=== PATIENT | male | born 1980 | race Hispanic/Latino ===

== ENCOUNTER 2016-06-18 19:36 | Observation (INO) | payer OTHER ==
[~2016-06-18] VITALS: Ht 167.6 cm; Wt 93.9 kg
[2016-06-18 19:41] VITALS: BP 171/106; PULSE 85; RESP 20; O2SAT 98
[2016-06-18 20:08] LABS: BASOPHILS % (AUTO) 0.3 % (0-3); EOSINOPHILS % (AUTO) 1.9 % (0-5); MONOCYTES % (AUTO) 6.5 % (4-12); Mean Corpuscular Hemoglobin 30.4 pg (27.0-35.0); Mean Corpuscular Volume 88.1 fL (81-100); NEUTROPHILS % (AUTO) 69.6 % (40-74); Platelet Count 355 bil/L (150-400)
[2016-06-18 20:29] LABS: Magnesium 2.4 mg/dL (1.6-2.6)
--- NOTE | 2016-06-18 21:25 | ED.REPORT ---
HPI-Abd Pain M Under 40 Date of Service Jun 18, 2016 ED Provider: Giancarlo Case DO Patient is a 36 year old male who presents to the ED complaining of abdominal pain onset this afternoon. His pain started as sharp epigastric pain and the effort to swallow caused him pain. Over time his pain has moved to his RLQ. Associated symptoms include chills, diaphoresis, and nausea. He denies vomiting , dysuria, or any other symptoms. Nursing Notes Stated Complaint: STOMACH PAIN Chief Complaint: Male Abdominal Pain Nursing Notes Reviewed: Yes Allergies: Coded Allergies: No Known Allergies (Verified , 02/13/04) Uncoded Allergies: No Known Allergies (Allergy, Severe, 02/13/04) General Time Seen by MD: 21:21 Chief Complaint Abdominal pain Hx Obtained From: Patient, Spouse Sudden in Onset?: Yes Similar Sx Previous: No Past Medical History Past Medical History Endocarditis Reports: Hypertension Past Surgical History Denies Smoking History Former Smoker Social History Other Social History: Good social support, Ambulatory Status Independent Review of Systems Constitutional: Reports: Chills GI: Reports: Abdominal pain, Nausea, Denies: Vomiting Male: Denies Dysuria Complete sys rev & neg: except as marked. Skin: Reports Diaphoresis Physical Exam Initial Vital Signs Vital Signs (First) Date Time Temp Pulse Resp B/P Pulse Ox O2 Delivery O2 Flow Rate FiO2 06/18/16 19:41 36.5 85 20 171/106 98 Initial VS: Reviewed Head / Eyes: Atraumatic, Normocephalic Skin: Warm, Dry Neurologic: Alert, Oriented, Nonfocal Psychiatric: Mood/affect normal, Behavior normal, Normal thought content General/Constitutional: Awake, Alert, Well developed Hypertensive Respiratory / Chest: No respiratory distress Cardiovascular: Heart rate NL, Regular rhythm Abdomen: Soft Tenderness/Guarding/Rebound: Positive: Tender RLQ... Back: Inspection NL Interpretation & Diagnostics Lab Results Interpretation Result Diagram: 06/18/16199906/18/161999 Test 06/18/16 20:00 06/18/16 21:20 White Blood Count 11.3th/mm3 (3.8-10.1) Red Blood Count 5.23mil/mm3 (4.40-5.80) Hemoglobin 15.9g/dL (13.8-17.2) Hematocrit 46.1% (41.0-50.0) Mean Corpuscular Volume 88.1fL (81-100) Mean Corpuscular Hemoglobin 30.4pg (27.0-35.0) Mean Corpuscular Hemoglobin Concent 34.5% (32.0-37.0) Red Cell Distribution Width 12.7% (12.3-15.4) Platelet Count 355bil/L (150-400) Neutrophils (%) (Auto) 69.6% (40-74) Lymphocytes (%) (Auto) 21.4% (14-46) Monocytes (%) (Auto) 6.5% (4-12) Eosinophils (%) (Auto) 1.9% (0-5) Basophils (%) (Auto) 0.3% (0-3) Sodium Level 136mEq/L (134-144) Potassium Level 3.8mEq/L (3.5-5.2) Chloride Level 96mEq/L (97-108) Carbon Dioxide Level 28mmol/L (18-29) Blood Urea Nitrogen 18mg/dL (6-20) Creatinine 0.96mg/dL (0.76-1.27) Estimat Glomerular Filtration Rate 94mL/min (>59) Glucose Level 106mg/dL (60-99) Calcium Level 9.4mg/dL (8.5-10.1) Magnesium Level 2.4mg/dL (1.6-2.6) Total Bilirubin 0.7mg/dL (0.0-1.2) Aspartate Amino Transf (AST/SGOT) 39U/L (0-50) Alanine Aminotransferase (ALT/SGPT) 66U/L (0-44) Alkaline Phosphatase 69U/L (25-150) Total Protein 7.8g/dL (6.4-8.4) Albumin 4.6g/dL (3.4-5.0) Lipase 20U/L (13-60) Hold Fernandes Top Tube Received (Received) Hold Urine Received (Received) CT Abd / Pelvis Interpretation Acute appendicitis, some area of diverticulosis and fatty liver. Study type: Abdominal CT IV contrast Interpretation / Wet Read by: Discussed w radiologist Re-Eval/Medical Decision Med Decision/Clinical Course Appendicitis will admit Re-Evaluation/Progress : Time of Eval: 22:09 )( Re-Eval Abdomen: Soft Re-Evaluation/Progress Note: Discussed imaging results and plan fro admission. Patient understands and agrees with plan. All questions addressed at this time. Consultation : Referral / Consult Name: Anisha Campa MD Consulted With: Surgeon Call Returned at: 22:11 Risk Control Officer: Will see patient, Agrees with eval, Agrees with plan, Accepts admit Note: Discussed patient's case. Accepts admit. Surgery in the morning Counseled Regarding: Diagnosis, Lab results, Need for admission Patient Discharge & Departure Primary Impression: Acute appendicitis Disposition: ADMITTED TO HOSPITAL Referrals: Popeye Ramos MD (PCP) Scribe Attestation Portions of this note were transcribed by Yunior Martin. I, Dr. Case personally performed the history, physical exam and medical decision-making; I reviewed and confirmed the accuracy of the information in the transcribed note. Signed by: Yunior Martin 06/18/2016, [id number] copies to: Popeye Ramos MD, Timothy S DO Jun 18, 2016 21:25 YUNIOR MARTIN Jun 18, 2016 21:44
[2016-06-18] MEDS ORDERED: Ondansetron 2 mg/mL 2 mL Inj IVPUSH PRN ×2 (21:40→22:15)
[2016-06-18] MEDS ORDERED: 0.9% Sodium Chloride 1,000 ML IV ONE ×2 (21:40→22:10)
[2016-06-18] MEDS ORDERED: Piperacillin-Tazo 3.375 Gm Inj 3.375 GM in Dextrose 5% Minibag Plus 50 ML IV ONE (22:10)
[2016-06-18] MEDS ORDERED: 0.9% Sodium Chloride 1,000 ML IV SCH (22:13)
[2016-06-18] MEDS ORDERED: Alum-Mag Hydrox-Simeth 30 mL Suspension PO PRN (22:15)
[2016-06-18] MEDS: Piperacillin-Tazo 3.375 Gm Inj 3.375 GM in Dextrose 5% Minibag Plus 50 ML IV SCH (23:48)
[2016-06-19] VITALS (15 sets, daily range): BP systolic 116–157; BP diastolic 67–96; PULSE 65–100; RESP 15–20; O2SAT 94–100
[2016-06-19] MEDS: 0.9% Sodium Chloride 1,000 ML IV SCH ×3 (00:41→06:10)
--- NOTE | 2016-06-19 01:17 | NUR ---
Admit To floor from ED at 0010 accompanied by . 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 States pain level is "0" at rest/ "6" with movement and pressure. Denies nausea. Received 1st dose of Zosyn in ED. Afebrile. Declines flu vaccine. Plan of care explained and no questions at this time. Awaiting surgery in AM.
--- NOTE | 2016-06-19 06:14 | NUR ---
Pain States right abdominal pain is minimal for now and declining further pain medications. Afebrile and has been sleeping. NPO awaiting surgery this AM.
[2016-06-19] MEDS: Piperacillin-Tazo 3.375 Gm Inj 3.375 GM in Dextrose 5% Minibag Plus 50 ML IV SCH (08:26)
--- NOTE | 2016-06-19 08:43 | HP ---
[address] [address] HISTORY AND PHYSICAL PATIENT: MARIELA VALLEJO : 1980 MR#: [id number] ADMIT: 06/18/2016 JOB ID: [id number] CHIEF COMPLAINT: Appendicitis. HISTORY OF PRESENT ILLNESS: The patient is a 36-year-old male who presented to the emergency department yesterday due to abdominal pain. The patient states that the pain started yesterday afternoon. It started at the epigastric location and subsequently the pain moved over to the right lower quadrant. He denies any nausea, vomiting. There were no chills. The patient is mostly Ghanaian speaking. Workup in the emergency department yesterday included a CT scan that shows acute appendicitis. The patient has been started on IV antibiotics. PAST MEDICAL HISTORY: Hypertension. MEDICATIONS: None. ALLERGIES: None. SOCIAL HISTORY: The patient is with a daughter. He lives in [place]. 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 REVIEW OF SYSTEMS: Positive for the abdominal pain. All other systems reviewed were negative. PHYSICAL EXAMINATION: The patient is currently in the hospital bed in no acute distress. His BMI is 33.4, temperature 36.8, blood pressure 126/81, pulse is 85. Head is normocephalic, atraumatic. There is no scleral icterus. Neck is supple. Heart is regular rhythm and rate. Lungs are clear. Abdomen is slightly obese but it is soft everywhere else except for mild tenderness in the right lower quadrant. There is no rebound. There are no peritoneal signs. Extremities shows no clubbing and no cyanosis. Neurologically, the patient is awake and alert. He is mostly Ghanaian speaking but speaks a few words of Puerto Rican. LABORATORY EXAMINATION: Last night showed a white blood count of 11.3, hematocrit 46.1, platelet count is 355. Sodium is 136, potassium 3.8, total bilirubin 0.7, lipase of 20. The CT scan report per the ED physician's note shows acute appendicitis. ASSESSMENT: This is a 36-year-old male with acute appendicitis. He has been started on IV antibiotics and we will take the patient to the operating room today for laparoscopic appendectomy, possible open. The risks of the operation were explained to the patient. The patient understands and wishes to proceed.
[2016-06-19] MEDS ORDERED: Lactated Ringer's 1,000 ML IV SCH (09:49)
[2016-06-19] MEDS ORDERED: Lactated Ringer's 500 ML IV PRN (09:49)
[2016-06-19] MEDS ORDERED: Labetalol 5 mg/mL 4 mL Inj IV PRN (09:50)
[2016-06-19] MEDS ORDERED: Ondansetron 2 mg/mL 2 mL Inj IVPUSH PRN ×2 (09:50→11:25)
[2016-06-19] MEDS ORDERED: EPHEDrine Sulfate 50 mg/mL Inj IVPUSH PRN (09:50)
[2016-06-19] MEDS ORDERED: Atropine 0.4 mg/mL Inj IVPUSH PRN (09:50)
[2016-06-19] MEDS ORDERED: HYDROmorphone 1 mg/mL Inj IVPUSH PRN ×2 (09:50→11:30)
[2016-06-19] MEDS ORDERED: MetoCLOpramide 5 mg/mL 2 mL Inj IVPUSH PRN (09:50)
[2016-06-19] MEDS ORDERED: Phenylephrine 10,000 mCg/mL Inj IVPUSH PRN (09:50)
[2016-06-19] MEDS ORDERED: fentaNYL-PF 50 mCg/mL 2 mL Inj IVPUSH PRN (09:50)
--- NOTE | 2016-06-19 10:00 | DRSVH ---
PROCEDURE: CT ABDOMEN AND PELVIS WITH CONTRAST ([id number]) INDICATIONS: rlq pain, chills TECHNIQUE: After the administration of intravenous contrast, 5 mm thick sections acquired from the diaphragm to the symphysis. 5 mm coronal and sagittal reformats were acquired. For radiation dose reduction, the following was used: automated exposure control, adjustment of mA and/or kV according to patient siz e. COMPARISON: None. FINDINGS: Image quality: Excellent. ABDOMEN: Lung bases: Lung bases are clear. Heart size is normal. Solid organs: Liver and spleen are normal in size and enhancement. Hepatic steatosis is present. Ga llbladder is unremarkable. Biliary system is non dilated. Pancreas enhances normally. No adrenal n odules. Kidneys demonstrate normal size and enhancement, without hydronephrosis. Peritoneum and bowel: Bowel loops demonstrate normal wall thickness and caliber. Scattered diverticu la without inflammatory change. The appendix is enlarged measuring 11 mm. There is surrounding infla mmatory change as well as presence of appendicoliths. No visualized perforation. No free fluid. Nodes and vessels: No retroperitoneal or mesenteric adenopathy by size criteria. Aorta and inferior vena cava are normal in size. Miscellaneous: No ventral hernias. PELVIS: Genitourinary: Bladder wall thickness is normal. Miscellaneous: No inguinal hernias or adenopathy. Bones: No suspicious bony lesions. No vertebral body compression fractures. IMPRESSION: 1. Enlarged, inflamed appendix with appendicoliths, most consistent with acute appendicitis. No visua lized perforation. 2. Diverticulosis. Dictated by: Christal Box M.D. on 06/19/2016 at 8:34 Approved by: Christal Box M.D. on 06/19/2016 at 9:59
--- NOTE | 2016-06-19 10:03 | PCM.HPANE ---
Patient Data Surgeon Admitting Provider:Anisha Campa MD Attending Provider:Anisha Campa MD Primary Care Physician:Popeye Ramos MD Other Provider: Reason for Visit Acute Appendicitis Ht/WT & BMI Height (Feet): 5 Height (Inches): 6.00 Weight (Kilograms): 93.900 Body Mass Index 33.27 Allergies Coded Allergies: No Known Allergies (Verified , 02/13/04) Uncoded Allergies: No Known Allergies (Allergy, Severe, 02/13/04) Diabetes History Hx Diabetes?: No MRSA MRSA: No History History of ENT Problems?: No Hx of Heart Problems?: No Cardiovascular History: Positive for:: Hypertension Denies:: Cardiac Surgery Chest Pain Congestive Heart Failure Irregular Heartbeat Pacemaker Thrombophlebitis Hx of Respiratory Problem?: No Respiratory History: Denies:: Asthma COPD Chest Surgery Dyspnea Emphysema Hemoptysis Pneumonia Tuberculosis Hx Neurologic Problems?: No Neurological History: Denies:: Alzheimer's Disease CVA Dementia Dizziness Headaches Parkinson's Disease Seizures Hx of GI Problems?: Yes (acute appendicitis) Gastrointestinal History: Denies:: Diverticulitis Gastroesphageal Reflux Gastrointestinal Bleeding Heartburn Hepatitis Hiatal Hernia Rectal Bleeding Other History/Comment Patient with 24 hours abdominal pain; no n/v. Pt is hungry right now Hx of Problems?: No Hx Musculoskeletal Problems?: Yes Musculoskeletal History: Positive for:: Back Injury Denies:: Joint Replacement Musculoskeletal Trauma Hx of Psycho/Social Problems?: No Hx Surgeries?: No Hx Any Other Health Problems?: No Other History: Positive for:: Hospitalization Denies:: Cancer Thyroid Disease History Blood Transfusions: Denies:: Accept Blood Products? Blood Transfuse Reaction Blood Transfusions Hx Diabetes: No Hx Alcohol Use: NoHx Substance Use: No Smoking Status: Former Smoker Have You Smoked inLast 12 mo: No Stop/Bang Treated for Sleep Apnea?: No Do You Have a CPAP Machine?: No S-Snoring: Do You Snore Loudly: Yes T-Tired: feel tired, fatigued: No O-Obsered: Observed not breath: No P-Blood Pressure: treated: Yes B- Body Mass Index > 35 kg/m2: No A- Age over 50: No N- Neck Large Circumference: No G- Gender Male: Yes LOUISE Total Score: 3 Risk Assessment Category Category 1A: Patient has history of documented sleep apnea, and HAS NOT received any narcotic, sedative or anesthesia administration during this stay. Category 1B: Patient has history of documented sleep apnea, and HAS received any narcotic , sedative or anesthesia administration during this stay Category 2: Patient has SUSPECTED Obstructive Sleep Apnea, and HAS received any narcotic , sedative or anesthesia administration during this stay. Category 3: Patient has SUSPECTED Obstructive Sleep Apnea and HAS NOT received narcotic, sedative or anesthesia administration during this stay. Category 4: Outpatient in Procedural Areas with known sleep apnea or who screen positive for High Risk via the STOP/BANG questionnaire. Exam Exam Vital Signs Vital Signs Date Time Temp Pulse Resp B/P Pulse Ox O2 Delivery O2 Flow Rate FiO2 06/19/16 07:14 36.8 85 126/81 96 Room Air 06/19/16 05:31 36.8 74 18 146/74 97 Room Air 06/19/16 03:03 36.9 84 18 121/73 97 Room Air General Appearance: Alert, Oriented X3 HEENT/AIRWAY: MP 2, Neck Movement (FROM) Lungs: Clear to Auscultation, Clear to Percussion Heart: Exam Unremarkable, Regular Rate/Rhythm Meds/Labs/Diagnostics Admission Meds Current Medications Sodium Chloride 1,000 ml @ 0 mls/hr Q0M ONCE IV Last administered on 21:40; Start 06/18/16 at 21:40; Stop 06/18/16 at 21:41; Status DC Piperacillin Sod/ Tazobactam Sod 3.375 gm/Dextrose/ Water 50 ml @ 100 mls/hr ONCE ONCE IV Last administered on 06/18/16 23:30; Start 06/18/16 at 22:10; Stop 06/18/16 at 22:39; Status DC Sodium Chloride 1,000 ml @ 0 mls/hr Q0M ONCE IV Last administered on 22:10; Start 06/18/16 at 22:10; Stop 06/18/16 at 22:11; Status DC Piperacillin Sod/ Tazobactam Sod 3.375 gm/Dextrose/ Water 50 ml @ 12.5 mls/hr Q8 IV Last administered on 06/19/16 08:26; Start 06/19/16 at 00:30 Sodium Chloride (Normal Saline) 1,000 ml @ 100 mls/hr Q10H IV Last administered on 2/23/17at 00:33; Start 06/18/16 at 22:13 Labs Test 06/18/16 20:00 06/18/16 21:20 White Blood Count 11.3th/mm3 (3.8-10.1) Red Blood Count 5.23mil/mm3 (4.40-5.80) Hemoglobin 15.9g/dL (13.8-17.2) Hematocrit 46.1% (41.0-50.0) Mean Corpuscular Volume 88.1fL (81-100) Mean Corpuscular Hemoglobin 30.4pg (27.0-35.0) Mean Corpuscular Hemoglobin Concent 34.5% (32.0-37.0) Red Cell Distribution Width 12.7% (12.3-15.4) Platelet Count 355bil/L (150-400) Neutrophils (%) (Auto) 69.6% (40-74) Lymphocytes (%) (Auto) 21.4% (14-46) Monocytes (%) (Auto) 6.5% (4-12) Eosinophils (%) (Auto) 1.9% (0-5) Basophils (%) (Auto) 0.3% (0-3) Sodium Level 136mEq/L (134-144) Potassium Level 3.8mEq/L (3.5-5.2) Chloride Level 96mEq/L (97-108) Carbon Dioxide Level 28mmol/L (18-29) Blood Urea Nitrogen 18mg/dL (6-20) Creatinine 0.96mg/dL (0.76-1.27) Estimat Glomerular Filtration Rate 94mL/min (>59) Glucose Level 106mg/dL (60-99) Calcium Level 9.4mg/dL (8.5-10.1) Magnesium Level 2.4mg/dL (1.6-2.6) Total Bilirubin 0.7mg/dL (0.0-1.2) Aspartate Amino Transf (AST/SGOT) 39U/L (0-50) Alanine Aminotransferase (ALT/SGPT) 66U/L (0-44) Alkaline Phosphatase 69U/L (25-150) Total Protein 7.8g/dL (6.4-8.4) Albumin 4.6g/dL (3.4-5.0) Lipase 20U/L (13-60) Hold Fernandes Top Tube Received (Received) Hold Urine Received (Received) Plan Impression Patient chart reviewed, patient interviewed and anesthestic plan with risks, benefits, and alternatives discussed, and informed consent obtained. ASA Physical Status: ASA2 Mod Systemic Disease Anesthetic Plan: GA Bene/Risks/Altern/Consents: Yes HP Complete Prior to Induction: Yes Tylor Magaña MD Jun 19, 2016 09:47
[2016-06-19] MEDS ORDERED: Lactated Ringer's 1,000 ML IV ONE (10:14)
--- NOTE | 2016-06-19 10:15 | NUR ---
To OR Report given to OR nurse. stable vital signs. Afebrile. NPO after midnight. family at bed side. stable mood. Denies pain or discomfort to right abdomen when patient not moving. independent with mobility. SBA, room air. verbalize the use of call light. call light with in reach for safety.
[2016-06-19] MEDS ORDERED: Bupivacaine-MPF 0.5% W/EPI 30 mL Inj INJ ONE (10:42)
[2016-06-19] MEDS ORDERED: HYDROcodone-APAP 5-325 mg Tablet PO PRN (11:25)
[2016-06-19] MEDS ORDERED: Sodium Chloride LOK Flush 10 mL Syringe IVFLUSH PRN (11:25)
--- NOTE | 2016-06-19 11:52 | NUR ---
Report from OR Report received from OR nurse. Stable vital signs and denies pain or discomfort to 3 dressing sites to left abdomen and right abdomen. patient still slightly drowsy and will be back to floor once stable.
--- NOTE | 2016-06-19 12:24 | PCM.ANEP1 ---
Post Anesthesia Phase 1 PACU Phase 1 Assessment Vital Signs Vital Signs Date Time Temp Pulse Resp B/P Pulse Ox O2 Delivery O2 Flow Rate FiO2 06/19/16 12:05 69 19 141/80 94 Nasal Cannula 2 06/19/16 11:50 66 17 140/67 100 Simple Mask 10 06/19/16 11:45 75 15 129/70 100 Simple Mask 10 06/19/16 11:40 65 15 129/79 100 Simple Mask 10 06/19/16 11:35 36.5 71 17 116/80 100 Simple Mask 10 06/19/16 07:14 36.8 85 126/81 96 Room Air 06/19/16 05:31 36.8 74 18 146/74 97 Room Air Anesthetic Administered: GA Level of Alertness: Awake, talking MANCINI's with Equal Strength: Yes Pain: Yes Pain Scale Score: 9 Oxygen Delivery: Simple Mask Lungs: Clear to Auscultation, Clear to Percussion Tylor Magaña MD Jun 19, 2016 12:24
--- NOTE | 2016-06-19 12:25 | PCM.ANEP2 ---
Post Anesthesia Evaluation ASA/CMS Post Anesthesia VS in Patient's Normal Range?: Yes Resp Stable; Airway Patent?: Yes CV Function & Hydration Stable: Yes Mental Status Recovered?: Yes Pain control Satisfactory?: Yes N/V Control Satisfactory?: Yes Tylor Magaña MD Jun 19, 2016 12:24
--- NOTE | 2016-06-19 12:56 | NUR ---
Back from PACU patient still slightly drowsy but awakens to voice. family at bed side. Offered clear fluids and tolerating well with out swallowing difficulty. stable vital signs. Oxygen at 2L stable oxygenation. bandages to left abdomen clean dry and intact. will continue to monitor dressing sites, pain, and vital signs. denies pain or discomfort at this time.
--- NOTE | 2016-06-19 13:43 | OP ---
[address] [address] OPERATIVE REPORT PATIENT: MARIELA VALLEJO : 1980 MR#: [id number] ADMIT: 06/18/2016 JOB ID: [id number] DATE OF SURGERY: 06/19/2016 SURGEON: Umer Redmond MD. 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 PREOPERATIVE DIAGNOSIS(ES): Acute appendicitis. POSTOPERATIVE DIAGNOSIS(ES): Acute appendicitis. PRINCIPAL PROCEDURE: Laparoscopic appendectomy. INDICATION FOR PROCEDURE: The patient is a 36-year-old male with acute appendicitis with a positive CAT scan. PRINCIPAL FINDING: Successful laparoscopic appendectomy. Nonruptured. PROCEDURAL COURSE: The patient was brought to the operating table and was provided with general anesthesia. The patient was given IV antibiotics and SCDs. A time-out was performed. The patient's abdomen was then prepped and draped in the usual sterile fashion. Next, local anesthetic was injected into the left upper quadrant location and a 5 mm stab incision was made. A Veress needle was used to establish pneumoperitoneum. Next, a 5 mm trocar was then placed and the laparoscope was introduced. A second 5 mm trocar was then placed in the left lateral abdomen and a 12 mm trocar was then placed in the left lower quadrant. The appendix was quickly identified in the right lower quadrant attached to the cecum. The mesoappendix was then first taken using electrocautery until we freed up all the way to the base of the appendix. Using an endoscopic stapler the base of the appendix was then transected. The specimen was then placed into the EndoCatch bag and removed from the patient. Irrigation of the pelvis and of the right lower quadrant was carried out. Inspection of the staple line shows that it was intact. There were no signs of arterial bleeding or leakage. Next, we turned our attention to the left lower quadrant trocar site. The fascial defect there was then reapproximated using 0 Vicryl suture using the EndoClose device. Next, CO2 was allowed to escape and all the trocars were then removed from the patient. Skin edges were then reapproximated using absorbable sutures. Steri-Strips and sterile dressing were then placed over each wound. By the end of procedure, needle counts and sponge counts were correct. The patient was then extubated and taken to the recovery room in stable satisfactory condition.
[2016-06-19] MEDS ORDERED: Piperacillin-Tazo 3.375 Gm Inj 3.375 GM in Dextrose 5% Minibag Plus 50 ML IV SCH (16:30)
[2016-06-19] MEDS ORDERED: 0.9% Sodium Chloride 250 ML ONE (17:20)
--- NOTE | 2016-06-19 19:24 | NUR ---
Discharge Family awaiting discharge to go home. paged Dr Redmond r/t finalized discharge. awaiting call back. Report given to oncoming night nurse.
--- NOTE | 2016-06-19 19:44 | PCM.DISURG ---
Surgical Discharge Instruction Date of Service Jun 19, 2016 Dates of Hospitalization Date of Hospital Admission Jun 18, 2016 at 22:29 Providers Admitting Physician: Anisha Campa MD Primary Care Physician: Popeye Ramos MD Attending Physician: Anisha Campa MD Discharge Diagnosis Discharge Diagnosis Appendicitis s/p lap appendectomy Diet Discharge Diet: No restrictions Activity Discharge Activity-General: Activity as pain allows, No lifting >15 pounds for 2 weeks, No driving while taking narcotic Dressing and Incisional Care Dressing Care: Keep dressing clean, dry & intact, Allow Steri Stripes to fall off Hygiene: May shower Additional Instructions Discharge Instructions Rx: Alexander (#25), colace OK to take home meds Follow Up Plan Follow-up Provider (F9): Israel Shre PA-C Follow-up appointment: Weeks (1-2) Umer Redmond MD Jun 19, 2016 19:44
--- NOTE | 2016-06-19 19:46 | PCM.DISURG ---
Surgical Discharge Instruction Date of Service Jun 19, 2016 Dates of Hospitalization Date of Hospital Admission Jun 18, 2016 at 22:29 Providers Admitting Physician: Anisha Campa MD Primary Care Physician: Popeey Ramos MD Attending Physician: Anisha Campa MD Activity Discharge Activity-General: Activity as pain allows, No lifting >15 pounds for 2 weeks, No driving while taking narcotic Follow Up Plan Follow-up Provider (F9): Israel Sher PA-C Follow-up appointment: Weeks (1-2) Call your provider for: Fever, Shortness of breath, Increasing abdominal pain, Vomiting, Wound redness, Discharge @ incision, pus discharge Umer Redmond MD Jun 19, 2016 19:46
[2016-06-19] MEDS ORDERED: Dexamethasone 4 mg/mL Inj ONE (19:59)
[2016-06-19] MEDS ORDERED: Lidocaine PF 1% 30 mL Inj ONE (19:59)
[2016-06-19] MEDS ORDERED: fentaNYL-PF 50 mCg/mL 2 mL Inj ONE (19:59)
[2016-06-19] MEDS ORDERED: Propofol 10,000 mCg/mL 20 mL Inj ONE (19:59)
[2016-06-19] MEDS ORDERED: Ondansetron 2 mg/mL 2 mL Inj ONE (19:59)
[2016-06-19] MEDS ORDERED: Succinylcholine Chloride 20 mg/mL 5 mL Inj ONE (19:59)
--- NOTE | 2016-06-19 20:15 | NUR ---
Discharge Discharged home with via personal vehicle. Telephone orders received from Dr Redmond to d/c patient. IV d/c intact. Discharge instructions reviewed with patient and with verbal understanding. Medicated with [facility] prior to d/c for abdominal discomfort. Personal belongings taken home. Prescription and discharge instructions sent with patient.
--- NOTE | 2016-06-20 10:22 | PCM.DC.SUR ---
Discharge Summary Date of Service: Date of Hospital Admission: Jun 18, 2016 at 22:29 Date of Operation(s): 06/19/2016 Date of Discharge: 06/19/2016 Diagnosis at Time of Discharge Primary diagnosis: Acute appendicitis Other diagnoses: Hypertension Problems: Operation Laparoscopic appendectomy Brief History and Physical: The patient is a 36-year-old male who presented to the emergency department due to abdominal pain. The patient states that the pain started the afternoon prior to admission. It started at the epigastric location and subsequently the pain moved over to the right lower quadrant. He denied any nausea, vomiting. There were no chills. Workup in the emergency department included a CT scan that demonstrated acute appendicitis. The patient was started on IV antibiotics. Consultants: None Hospital Course: The patient was admitted and the following day underwent the above-mentioned operation without complication. He was stable for discharge shortly after his operation. Pathology: Pending Disposition: The patient was discharged home on his operative day. Follow-up Plan: He will follow-up in the office with Israel Sher PA-C in 1-2 weeks. No Active Prescriptions or Reported Meds copies to: Popeye Ramos MD, Fred H PA-C Jun 20, 2016 10:22
--- NOTE | 2016-06-23 15:11 | PATH ---
SURGICAL PATHOLOGY Attending Physician:Umer Redmond M.D. CASE STATUS: Signed Out PATIENT NAME: MARIELA VALLEJO PID: [id number] : 1980 DATE COLLECTED:06/19/2016 00:00 SPECIMEN: Appendix CLINICAL HISTORY: ACUTE APPENDICITIS 1).APPENDIX FINAL DIAGNOSIS: 1.APPENDIX: VERMIFORM APPENDIX WITH ACUTE APPENDICITIS. NO EVIDENCE OF MALIGNANCY. ICD10 CODE K35.80 GROSS DESCRIPTION: The specimen is received in one formalin filled container labeled with the patient's name, sublabeled "appendix" and consists of one cylindrical ryan appendix measuring 6.5 x 1.3 x 1.3 CM. The serosal surface is light ryan, smooth and glistening. There is a large amount of attached fatty tissue. Sectioning reveals the wall to be thickened to 0.2 CM. There is a small amount of light pink ryan friable material in the lumen. 4 automobile rental representative sections are submitted in one cassette. 06/19/2016 [facility] MICRO DESCRIPTION: See diagnosis. ICD-9 CODES: CPT CODES: 1: 04068 Electronically Signed Out Viviana Rasmussen MD [facility] Pathology [facility] [address], [place] [address] Technical component performed at [facility], [address] [place] [address] Ave, [address], [place], [address]
== END 2016-06-19 20:00 | disposition home or self-care (01) ==
LOC: SED 19:36 → MOC 22:29
PROVIDERS: ADMIT Surgery; ATTEND Surgery
PROC: 0DTJ4ZZ Resection of Appendix, Percutaneous Endoscopic Approach (ICD-10-PCS; principal; 2016-06-19 10:00)
DX: K35.80 Unspecified acute appendicitis (principal); I10 Essential (primary) hypertension; Z87.891 Personal history of nicotine dependence
CPT/HCPCS: 36415; 44970; 74177; 80053; 83690; 83735; 85025; 94640; 96361; 96374; 99285; G0378; J0330; J1100; J1170; J2270; J2405; J2543; J3010; J7030; J7050; J7120; Q9967